=== PATIENT | female | born 1960 | race African-American/Black ===

== ENCOUNTER 2019-06-20 23:11 | Emergency (ER) | payer SELFPAY ==
[~2019-06-20] VITALS: Ht 162.6 cm; Wt 98.5 kg
[2019-06-21] MEDS ORDERED: KETOROLAC 30MG/ML VIAL IM ONE (00:15)
[2019-06-21 01:34] VITALS: BP 155/105
== END 2019-06-21 01:35 | disposition home or self-care (01) ==
LOC: ER 23:45
DX: S52.615A Nondisplaced fracture of left ulna styloid process, initial encounter for closed fracture (principal); W01.0XXA Fall on same level from slipping, tripping and stumbling without subsequent striking against object, initial encounter; Y93.89 Activity, other specified; Y92.89 Other specified places as the place of occurrence of the external cause; R03.0 Elevated blood-pressure reading, without diagnosis of hypertension
CPT/HCPCS: 29125; 73110; 96372; 99283; J1885